=== PATIENT | female | born 1975 | race Caucasian/White ===

== ENCOUNTER 2017-03-10 18:46 | Emergency (ER) | payer OTHER ==
[~2017-03-10 18:46] MED LIST: BENZONATATE PO; CEFDINIR300 M2 PO; DICLOFENAC PO; FLEXERIL PO; KEFLEX500 M1 PO; MAGIC MOUTHWASH; NAPROSYN500 MG PO; NAPROXEN PO; NAPROXEN SODIU500 MG PO; NEURONTIN PO; NO MEDICATIONS; PHENERGAN25 M1 PO; POLYTRIM O10 ML OPTH OS; ROBITUSSIN AC PO; VICODIN 5/1 TAB 5/50 PO; VOLTAREN75 MG PO; WOMEN'S DAILY1 EAC4; ZITHROMAX PO; [UNRECOGNIZED DRUG - OTHER]
[2017-03-17] MEDS ORDERED: ZITHROMAX (12:37)
== END 2017-03-10 19:32 | disposition home or self-care (01) ==
LOC: SED 18:46
DX: J06.9 Acute upper respiratory infection, unspecified (principal); R21 Rash and other nonspecific skin eruption; G51.0 Bell's palsy; F17.200 Nicotine dependence, unspecified, uncomplicated; Z88.0 Allergy status to penicillin; Z79.899 Other long term (current) drug therapy
CPT/HCPCS: 87651; 96372; 99283; J1040

== ENCOUNTER 2017-03-22 08:22 | Emergency (ER) | payer OTHER ==
[~2017-03-22 08:22] MED LIST changes: +ZITHROMAX
== END 2017-03-22 09:32 | disposition home or self-care (01) ==
LOC: SED 08:22
DX: R21 Rash and other nonspecific skin eruption (principal); J06.9 Acute upper respiratory infection, unspecified; F17.210 Nicotine dependence, cigarettes, uncomplicated; Z98.51 Tubal ligation status; Z79.899 Other long term (current) drug therapy; Z88.0 Allergy status to penicillin
CPT/HCPCS: 99282